=== PATIENT | male | born 1980 | race Caucasian/White ===

== ENCOUNTER → 2020-03-13 | Day surgery (SDC) | payer BC, OTHER ==
[2020-03-09 15:06] LABS: BASOPHILS # (AUTO) 0.1 (0.0-0.1); BASOPHILS % 0.6 % (0.0-1.0); EOSINOPHILS # (AUTO) 0.1 (0.0-0.4); EOSINOPHILS % 1.1 % (0.0-6.0); HEMATOCRIT 39.4 % (38.2-49.6); HEMOGLOBIN 12.3 g/dL (14.0-18.0); LYMPHOCYTES # (AUTO) 3.1 (1.0-3.2); LYMPHOCYTES % 40.1 % (18.0-39.1); MEAN CORPUSCULAR HEMOGLOBIN 25.9 pg (28-32); MEAN CORPUSCULAR HGB CONC 31.2 g/dL (31-35); MEAN CORPUSCULAR VOLUME 83.1 fL (81-99); MONOCYTES # (AUTO) 0.7 (0.2-0.8); MONOCYTES % 9.3 % (4.4-11.3); NEUTROPHILS # (AUTO) 3.8 (2.1-6.9); NEUTROPHILS % 48.5 % (38.7-80.0); PLATELET COUNT 257 x10e3/uL (140-360); RED BLOOD COUNT 4.74 x10e6/uL (4.3-5.7); RED CELL DISTRIBUTION WIDTH 13.8 % (11.7-14.4)
[2020-03-09 16:53] LABS: BLOOD UREA NITROGEN 11 mg/dL (7-26); BUN/CREATININE RATIO 11 (6-25); CALCIUM 9.1 mg/dL (8.4-10.2); CARBON DIOXIDE 23 mmol/L (22-29); CHLORIDE 107 mmol/L (98-107); CREATININE, SERUM 0.97 mg/dL (0.72-1.25); EST GLOMERULAR FILTRATION RATE > 60 ML/MIN (60-); GLUCOSE 100 mg/dL (74-118); SODIUM 140 mmol/L (136-145)
--- NOTE | 2020-03-09 17:36 | Diagnostic Imaging Report ---
EXAMINATION: CHEST 2 VIEWS INDICATION: Preop, foot surgery ^[id number] ^[id number] ^PRE-OP COMPARISON: None FINDINGS: PA and lateral views TUBES and LINES: None. LUNGS: Lungs are well inflated. There is no evidence of pneumonia or pulmonary edema. PLEURA: No pleural effusion or pneumothorax. HEART AND MEDIASTINUM: The cardiomediastinal silhouette is unremarkable.. BONES AND SOFT TISSUES: No focal osseous lesions. Soft tissues are unremarkable. UPPER ABDOMEN: Unremarkable. IMPRESSION: No acute thoracic abnormality. Signed by: Dr. Prosper Leonard MD on 03/09/2020 5:33 PM
[~2020-03-13] MED LIST: BUPIVACAINE HCL 0.5% INJ 30 ML VIAL INJ ONE; CEFAZOLIN SOD 1 GM/NS 50ML 100 ML IV ONE; DEXAMETHASONE SOD PHOS INJ 4 MG/ML VIAL ONE; FENTANYL CITRATE/PF 100MCG/2 ML INJ ONE; IBUPROFEN 800MG/ 200ML 200 ML IV ONE; KETOROLAC TROMETHAMINE 30 MG/ML VIAL ONE; LIDOCAINE HCL 2% LOCAL INJ 5 ML SDV VIAL INJ ONE; METOCLOPRAMIDE HCL 10 MG/2ML VIAL ONE; MIDAZOLAM HCL 2 MG/2 ML VIAL ONE; MORPHINE SULFATE INJ 10 MG/ML ONE; MULTI-VITAMIN1 EACH PO; NEOSTIGMINE 1 MG/ML 10ML VIAL ONE; ONDANSETRON HCL INJ 2MG/ML 2ML 2 MG/ML VIAL ONE; PROPOFOL IV EMULSION 10 MG/ML 20 ML VIAL ONE; SEVOFLURANE INHAL SOLN 250 ML PEN BTL ONE; TURMERIC1 GM PO; VITAMIN B-121000 MCG PO; VITAMIN C500 M4 PO; ZYRTEC10 M3 PO
[2020-03-13 10:55] VITALS: BP 116/65
--- NOTE | 2020-04-23 14:17 | Operative Report ---
DATE OF PROCEDURE: 03/13/2020 SURGEON: Jose Alejandro Machado DPM PREOPERATIVE DIAGNOSES: 1. Rupture of the anterior talofibular ligament, left foot. 2. Hallux abductovalgus deformity, left foot. POSTOPERATIVE DIAGNOSES: 1. Rupture of the anterior talofibular ligament, left foot. 2. Hallux abductovalgus deformity, left foot. TITLE OF THE OPERATION: 1. Modified primary repair of a ligament rupture and anterior talofibular ligament repair, left foot. 2. Lapidus bunionectomy, left foot, which includes a 1st metatarsal cuneiform fusion. 3. Modified Mohamud bunionectomy, left foot. ANESTHESIA: General endotracheal. HEMOSTASIS: Left thigh tourniquet to 350 mmHg to create hemostasis. PROCEDURE IN DETAIL: The patient was taken to the operating room in a mildly sedated state, placed on the operating table in supine position. Following induction of general anesthetic, the left lower extremity was elevated to 60 degrees to exsanguinate before inflating the pneumatic thigh tourniquet to 350 mmHg to create hemostasis. The left lower extremity was placed on the operating table prior to performing following procedure. PROCEDURE #1: Modified anterior talofibular ligament repair of the left foot. An approximate 4 cm lateral incision was placed J-shaped overlying the anterior talofibular ligament. This incision was deepened via sharp and blunt dissection on the level of the anterior talofibular ligament at the lateral fibula. This was dissected free, rupture noted. A corkscrew anchor was inserted and #2 FiberWire was used to close the gaps in the anterior talofibular ligament. This was closed without impingement and after closure, the area was noted to be stable, irrigated and closed with 3-0 Vicryl and 4-0 nylon. Attention was then directed to the 1st metatarsophalangeal joint of the left foot. An approximate 6 cm dorsal linear incision was made overlying the left 1st metatarsophalangeal joint. Incision was deepened via sharp and blunt dissection on the level of dorsal capsular structure. Care was taken to identify and retract all vital structures encountered. Head of the 1st metatarsal delivered the surgical site, remodeled utilizing oscillating saw. The conjoined tendon of the adductor hallucis muscle was identified and tenotomized. It was noted there was a very high intermetatarsal angle. Attention was directed back to the base of the 1st metatarsal with metatarsal cuneiform to correct that. The appropriate angular correction was made via osteotomy back at the base with resection of all cartilaginous material from the cuneiform and base of the 1st metatarsal. These were then placed in good apposition and screw fixation inserted across with dorsal compression plate. The areas are irrigated with copious amounts of sterile saline solution. Deep closure with 3-0 Vicryl, subcutaneous closure with 4-0 Vicryl, and skin closure with 4-0 nylon. Capsule tendon balancing procedures were performed. At this point, the area was blocked with 0.5 Marcaine Decadron [place], released the pneumatic thigh tourniquet, showed a normal hyperemic flush to all digits of the left foot. The patient left the operating room, vital signs stable in apparent satisfactory condition and tolerated both anesthetic and procedure well. GONZALO Mejia/JANNET /[id number]
== END | disposition home or self-care (01) ==
LOC: OR 05:45
PROVIDERS: ATTEND Podiatrist Foot Surgery
DX: S93.602A Unspecified sprain of left foot, initial encounter (principal); M20.12 Hallux valgus (acquired), left foot; G47.33 Obstructive sleep apnea (adult) (pediatric); X58.XXXA Exposure to other specified factors, initial encounter; Z01.810 Encounter for preprocedural cardiovascular examination; Z01.812 Encounter for preprocedural laboratory examination; Z01.818 Encounter for other preprocedural examination; Z11.59 Encounter for screening for other viral diseases; Z87.891 Personal history of nicotine dependence
CPT/HCPCS: 27695; 28297; 36415; 71046; 76000; 80048; 85025; 93005; C1713 ×7; J0690; J1100; J1885; J2001; J2250; J2270; J2405; J2704; J2710; J2765; J3010; Q4100; U0002

== ENCOUNTER → 2020-05-22 | Day surgery (SDC) | payer BC, OTHER ==
[2020-05-19 15:13] LABS: BASOPHILS % 0.4 % (0.0-1.0); EOSINOPHILS # (AUTO) 0.1 (0.0-0.4); EOSINOPHILS % 1.3 % (0.0-6.0); HEMATOCRIT 38.8 % (38.2-49.6); HEMOGLOBIN 12.2 g/dL (14.0-18.0); LYMPHOCYTES % 36.3 % (18.0-39.1); MEAN CORPUSCULAR HEMOGLOBIN 26.1 pg (28-32); MEAN CORPUSCULAR HGB CONC 31.4 g/dL (31-35); MEAN CORPUSCULAR VOLUME 82.9 fL (81-99); MONOCYTES # (AUTO) 0.7 (0.2-0.8); MONOCYTES % 7.9 % (4.4-11.3); NEUTROPHILS # (AUTO) 4.4 (2.1-6.9); NEUTROPHILS % 53.9 % (38.7-80.0); PLATELET COUNT 268 x10e3/uL (140-360); RED BLOOD COUNT 4.68 x10e6/uL (4.3-5.7); RED CELL DISTRIBUTION WIDTH 14.6 % (11.7-14.4)
[~2020-05-22] MED LIST changes: -IBUPROFEN 800MG/ 200ML 200 ML IV ONE; -METOCLOPRAMIDE HCL 10 MG/2ML VIAL ONE; +SCOPOLAMINE 1.5 MG PATCH ONE; +ZINC SULFATE220 MG PO
[2020-05-22 10:50] VITALS: BP 112/71
== END | disposition home or self-care (01) ==
LOC: OR 05:33
PROVIDERS: ATTEND Podiatrist Foot Surgery
DX: M20.11 Hallux valgus (acquired), right foot (principal); M20.12 Hallux valgus (acquired), left foot; F17.200 Nicotine dependence, unspecified, uncomplicated; Z01.812 Encounter for preprocedural laboratory examination; Z20.828 Contact with and (suspected) exposure to other viral communicable diseases
CPT/HCPCS: 28297; 36415; 76000; 85025; C1713 ×8; J0690; J1100; J1885; J2001; J2250; J2270; J2405; J2704; J2710; J3010; Q4100; U0002

== ENCOUNTER → 2020-06-22 | Outpatient (RCR) | payer BC ==
[~2020-06-22] MED LIST changes: -BUPIVACAINE HCL 0.5% INJ 30 ML VIAL INJ ONE; -CEFAZOLIN SOD 1 GM/NS 50ML 100 ML IV ONE; -DEXAMETHASONE SOD PHOS INJ 4 MG/ML VIAL ONE; -FENTANYL CITRATE/PF 100MCG/2 ML INJ ONE; -KETOROLAC TROMETHAMINE 30 MG/ML VIAL ONE; -LIDOCAINE HCL 2% LOCAL INJ 5 ML SDV VIAL INJ ONE; -MIDAZOLAM HCL 2 MG/2 ML VIAL ONE; -MORPHINE SULFATE INJ 10 MG/ML ONE; -NEOSTIGMINE 1 MG/ML 10ML VIAL ONE; -ONDANSETRON HCL INJ 2MG/ML 2ML 2 MG/ML VIAL ONE; -PROPOFOL IV EMULSION 10 MG/ML 20 ML VIAL ONE; -SCOPOLAMINE 1.5 MG PATCH ONE; -SEVOFLURANE INHAL SOLN 250 ML PEN BTL ONE
== END ==
LOC: PT 14:41
PROVIDERS: ATTEND Specialist
DX: M25.462 Effusion, left knee (principal); S79.922A Unspecified injury of left thigh, initial encounter